=== PATIENT | female | born 2000 | race Caucasian/White ===

== ENCOUNTER 2022-05-03 07:38 | Outpatient (CLI) | payer BC ==
[2022-05-03] MEDS ORDERED: Iopamidol 300 61% 100 ML VIAL FS ONE (14:00)
== END 2022-05-03 07:39 | disposition home or self-care (01) ==
LOC: CSHCT 07:38
PROVIDERS: ATTEND Physician Assistant
DX: R22.1 Localized swelling, mass and lump, neck (principal)
CPT/HCPCS: 70491; Q9967